=== PATIENT | male | born 1955 | race Caucasian/White ===

== ENCOUNTER → 2017-05-27 | Outpatient (REF) | payer OTHER | LOC: M LAB REF 12:22 | PROVIDERS: ATTEND Nurse Practitioner Family | DX: M10.9 Gout, unspecified (principal) ==

== ENCOUNTER → 2017-12-08 | Outpatient (REF) | payer OTHER ==
[2017-12-10 12:05] LABS: HEPATITIS B SURFACE ANTIGEN NEGATIVE (NEGATIVE)
[2017-12-10 12:15] LABS: HEPATITIS B SURFACE ANTIBODY NEGATIVE (POSITIVE)
[2017-12-10 12:31] LABS: HEPATITIS A ANTIBODY IGM NEGATIVE (NEGATIVE)
[2017-12-13 14:11] LABS: HEPATITIS C QUANTITATION HCV Not Detected IU/mL (.)
== END ==
LOC: M LAB REF 16:36
DX: K50.10 Crohn's disease of large intestine without complications (principal); Z94.5 Skin transplant status

== ENCOUNTER → 2018-04-05 | Outpatient (REF) | payer MEDICARE, OTHER ==
[2018-04-06 14:52] LABS: C REACTIVE PROTEIN QUANTITATIV 0.32 MG/DL (0.00-0.30)
== END ==
LOC: M LAB REF 04-06 14:17
DX: I88.9 Nonspecific lymphadenitis, unspecified (principal)
CPT/HCPCS: 86140

== ENCOUNTER → 2018-12-12 | Outpatient (REF) | payer MEDICARE, OTHER ==
[2018-12-12 18:17] LABS: INR 1.07
[2018-12-12 18:18] LABS: PARTIAL THROMBOPLASTIN TIME 33.4 SECONDS (25.4-37.6)
[2018-12-12 18:54] LABS: FERRITIN 612 NG/ML (26-388); GAMMA GLUTAMYLTRANSPEPTIDASE 234 U/L (15-85); IRON (FE) 130 UG/DL (65-175); TOTAL IRON BINDING CAPACITY 289 UG/DL (250-450)
[2018-12-14 11:48] LABS: HEPATITIS B CORE ANTIBODY IGM NEGATIVE (NEGATIVE)
[2018-12-14 11:50] LABS: HEPATITIS A ANTIBODY IGM NEGATIVE (NEGATIVE)
[2018-12-14 13:22] LABS: HEPATITIS B SURFACE ANTIGEN NEGATIVE (NEGATIVE)
[2018-12-14 14:34] LABS: CERULOPLASMIN 19.1 mg/dL (16.0-31.0)
[2018-12-15 00:06] LABS: ALPHA 1 ANTITRYPSIN 127 mg/dL (90-200); ANTI-MITOCHONDRIAL ANTIBODY <20.0 Units (0.0-20.0); ANTI-SMOOTH MUSCLE ANTIBODY 5 Units (0-19); ANTINUCLEAR ANTIBODIES DIRECT Negative (Negative); ENDOMYSIAL ABY IgA Negative (Negative); TISSUE TRANSGLUTAMINASE IgA <2 U/mL (0-3); TISSUE TRANSGLUTAMINASE IgG <2 U/mL (0-5); UNITSIGA FOR GLIADIN IGA 5 units (0-19); UNITSIGG FOR GLIADIN IGG 1 units (0-19)
== END ==
LOC: M LAB REF 16:30
PROVIDERS: ATTEND Internal Medicine
DX: R94.5 Abnormal results of liver function studies (principal); D50.9 Iron deficiency anemia, unspecified

== ENCOUNTER → 2018-12-27 | Outpatient (REF) | payer MEDICARE, OTHER | LOC: M LAB REF 12:29 | PROVIDERS: ATTEND Nurse Practitioner Family | DX: R79.89 Other specified abnormal findings of blood chemistry (principal) ==

== ENCOUNTER → 2019-12-12 | Outpatient (REF) | payer MEDICARE, OTHER ==
[2019-12-12 13:16] LABS: C REACTIVE PROTEIN QUANTITATIV < 0.30 MG/DL (0.00-0.30); FERRITIN 758 NG/ML (26-388); IRON (FE) 129 UG/DL (65-175); PERCENT SATURATION 43.3 % (19.7-50.0); RHEUMATOID FACTOR QUANT < 10.0 IU/ML (<15.0); TOTAL IRON BINDING CAPACITY 298 UG/DL (250-450)
[2019-12-12 13:20] LABS: VITAMIN B12 LEVEL 394 PG/ML (247-911)
[2019-12-13 14:07] LABS: ANTINUCLEAR ANTIBODIES DIRECT Negative (Negative)
== END ==
LOC: M LAB REF 12:48
PROVIDERS: ATTEND Nurse Practitioner Family
DX: K50.10 Crohn's disease of large intestine without complications (principal); R94.5 Abnormal results of liver function studies; M25.50 Pain in unspecified joint

== ENCOUNTER → 2020-05-22 | Outpatient (REF) | payer MEDICARE, OTHER ==
[~2020-05-22] MED LIST: CALTTAB6 PO; D 10TAB2 PO; DOK1CAP7; DULC5TAB PO; HYDR12.55 PO; HYDR25TAB PO; LIAL1.2T PO; PEG1POW; SIMV10TA21 PO; SIMV20TA22 PO; ZYLO300T6 PO
[2020-05-22 18:05] LABS: C REACTIVE PROTEIN QUANTITATIV 1.09 MG/DL (0.00-0.30); PERCENT SATURATION 22.9 % (19.7-50.0)
[2020-05-24 18:07] LABS: ENDOMYSIAL ABY IgA Negative (Negative); TISSUE TRANSGLUTAMINASE IgA <2 U/mL (0-3)
== END ==
LOC: M LAB REF 17:16
PROVIDERS: ATTEND Registered Nurse
DX: R10.13 Epigastric pain (principal); K50.10 Crohn's disease of large intestine without complications

== ENCOUNTER 2020-05-24 12:43 | Emergency (ER) | payer MEDICARE, OTHER ==
[~2020-05-24] VITALS: Ht 167.6 cm; Wt 85.9 kg
[~2020-05-24 12:43] MED LIST changes: -DOK1CAP7; -DULC5TAB PO; -HYDR25TAB PO; -PEG1POW; -SIMV20TA22 PO
[2020-05-24] MEDS ORDERED: SIMV20TA22 PO (12:55)
[2020-05-24 14:11] LABS: BASO % 0.5 % (0.0-1.0); EOS # 0.1 10^3/uL (0.0-0.5); EOS % 1.3 % (0.0-3.0); HEMATOCRIT 49.6 % (42.0-52.0); HEMOGLOBIN 16.9 g/dl (13.5-17.5); LYMPH # 1.5 10^3/uL (1.5-5.0); MEAN CORPUSCULAR HEMOGLOBIN 32.3 pg (27.0-33.0); MEAN CORPUSCULAR HGB CONC 34.1 g/dl (32.0-36.5); MEAN CORPUSCULAR VOLUME 94.7 fl (80.0-96.0); MONO # 0.6 10^3/uL (0.0-0.8); MONO % 8.1 % (0.0-5.0); NEUTROPHILS # 5.5 10^3/uL (1.5-8.5); NEUTROPHILS % 70.8 % (36.0-66.0); PLATELET COUNT, AUTOMATED 172 10^3/uL (150-450); RED BLOOD COUNT 5.24 10^6/uL (4.30-6.10); WHITE BLOOD COUNT 7.7 10^3/uL (4.0-10.0)
[2020-05-24 14:18] LABS: INR 0.98; PROTHROMBIN TIME 13.2 SECONDS (12.5-14.3)
[2020-05-24 14:19] LABS: PARTIAL THROMBOPLASTIN TIME 31.3 SECONDS (24.2-38.5)
[2020-05-24 14:44] LABS: ALBUMIN 3.5 GM/DL (3.2-5.2); ALT/SGPT 277 U/L (12-78); BILIRUBIN,DIRECT 5.4 MG/DL (0.0-0.2); BILIRUBIN,TOTAL 6.8 MG/DL (0.2-1.0); BLOOD UREA NITROGEN 17 MG/DL (7-18); CARBON DIOXIDE LEVEL 29 MEQ/L (21-32); CHLORIDE LEVEL 101 MEQ/L (98-107); CREATININE FOR GFR 1.22 MG/DL (0.70-1.30); GLOMERULAR FILTRATION RATE > 60.0 (>49); GLUCOSE, FASTING 95 MG/DL (70-100); LIPASE 121 U/L (73-393); POTASSIUM SERUM 3.6 MEQ/L (3.5-5.1); SODIUM LEVEL 138 MEQ/L (136-145); TOTAL PROTEIN 7.5 GM/DL (6.4-8.2)
[2020-05-24] MEDS ORDERED: ISOVUE-370 76% 100ML VIAL As Ordered ONE (15:19)
--- NOTE | 2020-05-24 16:12 | REPVR ---
PROCEDURE INFORMATION: Exam: US Abdomen, Limited; Right Upper Quadrant Exam date and time: 05/24/2020 3:50 PM Age: 65 years old Clinical indication: Abdominal pain TECHNIQUE: Imaging protocol: US abdomen. Real time ultrasound with image documentation. Limited exam focused on the right upper quadrant. COMPARISON: CT ABD/PEL W/IV CONTRAST ONLY 05/24/2020 3:26 PM FINDINGS: Liver: Mildly hyperechoic consistent with hepatic steatosis. No masses. Gallbladder: Status post cholecystectomy. Common bile duct: Normal. No stones. No dilation. Maximal diameter is 7.6 mm. Distal diameter was greater on CT. Pancreas: Cannot be visualized due to overlying bowel gas. Mass identified on recent CT is not visualized. Right kidney: Normal. No mass. No hydronephrosis. IMPRESSION: Fatty liver. Electronically signed by: Reymundo Kirby On 05/24/2020 16:11:45 PM
--- NOTE | 2020-05-24 16:12 | REPVR ---
PROCEDURE INFORMATION: Exam: CT Abdomen And Pelvis With Contrast Exam date and time: 05/24/2020 3:14 PM Age: 65 years old Clinical indication: Abdominal pain; Generalized TECHNIQUE: Imaging protocol: Computed tomography of the abdomen and pelvis with intravenous contrast. Radiation optimization: All CT scans at this facility use at least one of these dose optimization techniques: automated exposure control; mA and/or kV adjustment per patient size (includes targeted exams where dose is matched to clinical indication); or iterative reconstruction. Contrast material: ISOVUE 370; Contrast volume: 100 ml; Contrast route: INTRAVENOUS (IV); COMPARISON: No relevant prior studies available. FINDINGS: Lungs: There are calcified granulomata at the lung bases. Liver: There is diffuse hepatic steatosis. There is no focal hepatic lesion. There is no focal lesion. Gallbladder and bile ducts: Status post cholecystectomy. The intrahepatic bile ducts and common bile ducts are mildly dilated. The common bile duct measures 11 mm in maximal diameter. Pancreas: There is a large hypodense mass within the head of the pancreas measuring 3.3 by 3.0 by 3.3 cm. It is seen within the inferior head of the pancreas involving the uncinate process. Spleen: The spleen is mildly enlarged, 14 cm. There are calcified splenic granulomata. Adrenals: The adrenals are normal. Kidneys and ureters: The kidneys are normal.No hydronephrosis. Stomach and bowel: Unremarkable. No obstruction. No mucosal thickening. Appendix: No evidence of appendicitis. Intraperitoneal space: Unremarkable. No free air. No significant fluid collection. Vasculature: The mass abuts but does not encase the superior mesenteric artery and vein. Lymph nodes: There are mildly enlarged lymph nodes in the gastrohepatic ligament measuring up to 9 mm in short axis. There are mildly enlarged lymph nodes in the celiac region measuring up to 12 mm in short axis. Urinary bladder: The bladder is normal with no evidence of calculi. Reproductive: The prostate is enlarged measuring up to 5.7 cm in diameter. Bones/joints: Unremarkable. No acute fracture. Soft tissues: Unremarkable. IMPRESSION: 1. 3.3 x 3.0 x 3.3 cm hypoenhancing mass within the head of the pancreas highly suspicious for pancreatic adenocarcinoma. 2. There are several mildly enlarged abdominal lymph nodes suspicious for metastatic adenopathy. 3. Status post cholecystectomy. There are mildly dilated intrahepatic and extrahepatic bile ducts which appears secondary to distal obstruction by the pancreatic mass. Electronically signed by: Reymundo Kirby On 05/24/2020 16:12:14 PM
[2020-05-24] MEDS ORDERED: HYDR25TAB PO (18:47)
[2020-05-24 22:15] VITALS: BP 150/89
== END 2020-05-24 22:37 | disposition short-term general hospital (02) ==
LOC: M ED 12:43
DX: K86.9 Disease of pancreas, unspecified (principal); K83.1 Obstruction of bile duct; R93.5 Abnormal findings on diagnostic imaging of other abdominal regions, including retroperitoneum; K76.0 Fatty (change of) liver, not elsewhere classified; I10 Essential (primary) hypertension; M10.9 Gout, unspecified; K50.919 Crohn's disease, unspecified, with unspecified complications; Z79.899 Other long term (current) drug therapy
CPT/HCPCS: 74177; 76705; 80048; 80076; 82140; 82977; 83605; 83690; 85025; 85610; 85730; 99285; Q9967

== ENCOUNTER 2020-06-12 07:07 | Emergency (ER) | payer MEDICARE, OTHER ==
[~2020-06-12] VITALS: Ht 167.6 cm; Wt 79.8 kg
[~2020-06-12 07:07] MED LIST changes: +HYDR25TAB PO; +SIMV20TA22 PO
[2020-06-12] MEDS ORDERED: PEG1POW (07:17)
[2020-06-12] MEDS ORDERED: DULC5TAB PO (07:17)
[2020-06-12] MEDS ORDERED: DOK1CAP7 (07:17)
[2020-06-12] MEDS ORDERED: ONDANSETRON 4MG/2ML VIAL IV ONE (07:45)
[2020-06-12 07:50] LABS: BASO # 0.1 10^3/uL (0.0-0.2); BASO % 0.3 % (0.0-1.0); EOS # 0.2 10^3/uL (0.0-0.5); EOS % 1.3 % (0.0-3.0); HEMATOCRIT 39.6 % (42.0-52.0); HEMOGLOBIN 13.2 g/dl (13.5-17.5); LYMPH # 1.5 10^3/uL (1.5-5.0); LYMPH % 8.5 % (24.0-44.0); MEAN CORPUSCULAR HEMOGLOBIN 30.6 pg (27.0-33.0); MEAN CORPUSCULAR HGB CONC 33.3 g/dl (32.0-36.5); MEAN CORPUSCULAR VOLUME 91.7 fl (80.0-96.0); MONO # 1.6 10^3/uL (0.0-0.8); NEUTROPHILS # 14.1 10^3/uL (1.5-8.5); NEUTROPHILS % 80.1 % (36.0-66.0); PLATELET COUNT, AUTOMATED 389 10^3/uL (150-450); RED BLOOD COUNT 4.32 10^6/uL (4.30-6.10); WHITE BLOOD COUNT 17.6 10^3/uL (4.0-10.0)
[2020-06-12] MEDS: NS 1,000 ML IV SCH ×2 (07:53→18:24)
--- NOTE | 2020-06-12 08:13 | REP ---
INDICATION: Abdominal Pain. COMPARISON: Comparison CT study May 24, 2020.. TECHNIQUE: Three views. FINDINGS: Upright chest radiograph is unremarkable. There is no evidence of infiltrate or free subdiaphragmatic air. Heart size is normal. Pulmonary vasculature is not increased. Pleural angles are sharp. There are granulomatous calcifications in the left base and left hilus. The thoracic aorta is somewhat tortuous. There is a unremarkable bowel gas pattern on supine and erect views of the abdomen. No evidence of obstruction significant air-fluid level or free air. A right upper quadrant common bile duct stent is seen in place. There are surgical clips post cholecystectomy also noted in the right upper quadrant. IMPRESSION: No evidence of obstruction or free air. Common bile duct stent and clips noted in the right upper quadrant. Bowel gas pattern unremarkable. No active disease in the chest.. <Electronically signed by Sammy Lay > 06/12/20 [id number]
[2020-06-12 08:18] LABS: ALBUMIN 2.3 GM/DL (3.2-5.2); ALT/SGPT 183 U/L (12-78); AMYLASE 278 U/L (25-115); BILIRUBIN,DIRECT 1.2 MG/DL (0.0-0.2); BLOOD UREA NITROGEN 16 MG/DL (7-18); CALCIUM LEVEL 8.7 MG/DL (8.8-10.2); CARBON DIOXIDE LEVEL 29 MEQ/L (21-32); CHLORIDE LEVEL 96 MEQ/L (98-107); CREATININE FOR GFR 1.14 MG/DL (0.70-1.30); GLOMERULAR FILTRATION RATE > 60.0 (>49); GLUCOSE, FASTING 124 MG/DL (70-100); LIPASE 2106 U/L (73-393); POTASSIUM SERUM 4.6 MEQ/L (3.5-5.1); SODIUM LEVEL 132 MEQ/L (136-145); TOTAL PROTEIN 7.4 GM/DL (6.4-8.2)
[2020-06-12] MEDS: GASTROGRAFIN SOLUTION 30ML PO SCH ×2 (08:47→09:38)
[2020-06-12 08:50] LABS: INR 1.21; PROTHROMBIN TIME 15.6 SECONDS (12.5-14.3)
[2020-06-12] MEDS ORDERED: ISOVUE-370 76% 100ML VIAL As Ordered ONE (10:00)
--- NOTE | 2020-06-12 10:57 | REP ---
INDICATION: RLQ pain, Hx Crohn's, Panc. Ca and ?cecal thickening/mass COMPARISON: 05/24/2020. TECHNIQUE: CT Scan of the abdomen and pelvis was performed with intravenous administration of 100 cc of Isovue 370, and oral contrast. FINDINGS: Lung bases: There are calcified granulomas in the lung bases.. Liver: Mild diffuse intrahepatic biliary dilatation. No definite mass is seen. Gallbladder: There has been a prior cholecystectomy. There is a stent in the common bile duct which is dilated up to approximately 10-11 mm in maximum diameter.. Spleen: There are calcified granulomas. Adrenals: Normal. Pancreas: A large mass is again seen in the pancreatic head. This may have mildly increased in size compared to the prior CT. Current maximum diameter is 5.4 cm. There is new dilatation of the pancreatic duct up to 5 mm. There is also new diffuse peripancreatic inflammation consistent with pancreatitis. Kidneys: Probable tiny cyst seen in the mid right kidney. No hydronephrosis. Small and large bowel: There is thickening of the proximal jejunum, secondary to adjacent pancreatitis. Free fluid: None. Abdominal aorta: No aneurysm or dissection. Adenopathy: There is extensive portal adenopathy, with multiple enlarged lymph nodes seen. The largest is just above the pancreatic head and measures 2.8 x 2.0 cm. Multiple subcentimeter periaortic lymph nodes are seen with several mildly enlarged lymph nodes slightly greater than 1 cm in short axis dimension. Appendix: Not inflamed. Osseous structures: Unremarkable. Pelvis: Prostate is enlarged and impresses upon the base of the bladder. IMPRESSION: A large mass is again seen in the pancreatic head. This may have mildly increased in size compared to the prior CT. Current maximum diameter is 5.4 cm. There is new dilatation of the pancreatic duct up to 5 mm. There is also new diffuse peripancreatic inflammation consistent with pancreatitis. Mild diffuse intrahepatic biliary dilatation. There is thickening of the proximal jejunum, secondary to adjacent pancreatitis. There is extensive portal adenopathy, with multiple enlarged lymph nodes seen. The largest is just above the pancreatic head and measures 2.8 x 2.0 cm. Multiple subcentimeter periaortic lymph nodes are seen with several mildly enlarged lymph nodes slightly greater than 1 cm in short axis dimension. <Electronically signed by Rowdy Leahy > 06/12/20 [id number]
[2020-06-12 14:52] LABS: ALBUMIN 2.1 GM/DL (3.2-5.2); BILIRUBIN,DIRECT 1.2 MG/DL (0.0-0.2); BILIRUBIN,TOTAL 1.6 MG/DL (0.2-1.0); TOTAL PROTEIN 6.6 GM/DL (6.4-8.2)
[2020-06-12 20:00] VITALS: BP 133/92
[2020-07-03] MEDS ORDERED: CREO3000 PO (10:50)
[2020-07-03] MEDS ORDERED: LOPE-39 PO (10:50)
[2020-07-03] MEDS ORDERED: REME15TA2 PO (10:50)
== END 2020-06-12 20:15 | disposition short-term general hospital (02) ==
LOC: M ED 07:07
DX: K85.90 Acute pancreatitis without necrosis or infection, unspecified (principal); C25.9 Malignant neoplasm of pancreas, unspecified; R59.0 Localized enlarged lymph nodes; Z96.89 Presence of other specified functional implants; I10 Essential (primary) hypertension; M10.9 Gout, unspecified; E78.5 Hyperlipidemia, unspecified; K50.919 Crohn's disease, unspecified, with unspecified complications; K74.60 Unspecified cirrhosis of liver; Z79.899 Other long term (current) drug therapy
CPT/HCPCS: 36415; 74021; 74177; 80048; 80076; 82150; 82977; 83605; 83690; 85025; 85610; 93041; 96361; 96374; 99285; J2405; Q9963; Q9967; U0002

== ENCOUNTER → 2020-08-30 | Outpatient (CLI) | payer MEDICARE, OTHER ==
[~2020-08-30] MED LIST changes: +CREO3000 PO; +DOK1CAP7; +DULC5TAB PO; +GASTROGRAFIN SOLUTION 30ML (Q9963) As Ordered ONE; +HYDR-3490 PO; -HYDR25TAB PO; +ISOVUE-370 76% 100ML VIAL As Ordered ONE; +LOPE-39 PO; +METO10TA2; +ONDA8TAB10; +PEG1POW; +POTA1TAB23; +REME15TA2 PO; +SENN-80
--- NOTE | 2020-09-04 17:27 | REP ---
INDICATION: PANCREATIC CA COMPARISON: None TECHNIQUE: Axial contrast enhanced images from the thoracic inlet to the upper abdomen with coronal and sagittal reformations using 100 ml Isovue 370 intravenous contrast material followed by CT of the abdomen and pelvis.. This CT examination was performed using the following dose reduction techniques: Automated exposure control, adjustment of mA and/or kv according to the patient's size, and use of iterative reconstruction technique. FINDINGS: The bilateral lung olivares are relatively well aerated and demonstrate few scattered calcified nodules along with few nonspecific right hilar lymph nodes suggesting sequelae of prior granulomatous disease. No acute consolidation, significant nodule or mass lesion identified. No pleural effusion. No pneumothorax. Tracheobronchial tree is patent. Further evaluation of the mediastinum demonstrates atherosclerotic changes to the coronary arteries and thoracic aorta with ascending aorta measuring 4.1 cm diameter and no evidence for dissection. No cardiomegaly or pericardial effusion. Surrounding musculoskeletal structures are intact and without acute osseous abnormality. [id number] identified with tip in the SVC. IMPRESSION: 1. Evidence for prior granulomatous disease and early aneurysmal dilatation to the ascending thoracic aorta measuring 4.1 cm maximal diameter. 2. No acute mediastinal or pleuroparenchymal process otherwise appreciated. No evidence for metastatic disease. <Electronically signed by Noe Jimenez > 09/04/20 [id number]
--- NOTE | 2020-09-04 17:43 | REP ---
INDICATION: PANCREATIC CA. COMPARISON: 06/12/2020, 11/17/2013 TECHNIQUE: Axial contrast-enhanced images from the lung bases to the pubic symphysis using 100 cc Isovue 370 intravenous contrast material. Delayed images of the abdomen along with coronal and sagittal reformations obtained.. This CT examination was performed using the following dose reduction techniques: Automated exposure control, adjustment of mA and/or kv according to the patient's size, and the use of iterative reconstruction technique. FINDINGS: There is a large heterogeneous and possibly centrally necrotic pancreatic mass involving the head/uncinate and proximal body of the pancreas currently measuring greater than 6.8 x 6.8 x 5.5 cm along with dilated pancreatic duct and relatively newly formed presumed pseudocyst involving the tail of the pancreas measuring approximately 5.5 x 6.8 cm in diameter and 12 cm in craniocaudal length. Most recent prior examination demonstrated peripancreatic inflammatory changes suggesting elements of pancreatitis which have subsequently resolved. Portal and peripancreatic adenopathy is again noted with lymph nodes just above the level of the pancreas currently measuring 2.1 cm maximal diameter which appears mildly improved from prior examination. The current examination demonstrates very small rim enhancing hepatic lesions highly suspicious for hepatic metastases. A stent is identified extending from the main hepatic duct through the common bile duct and the pancreatic head mass into the adjacent duodenum. Chronic splenic calcifications suggest prior granulomatous disease. Patient is noted to be status post cholecystectomy. Bilateral adrenal glands and kidneys appear relatively normal. The enteric system is without obstruction or acute inflammatory process moderate fecal stasis noted throughout the colon along with sigmoid diverticulosis. No acute diverticulitis. Pelvis demonstrates prostatomegaly with mass effect on the base of the bladder. No ascites. No free air. No significant retroperitoneal adenopathy although few periaortic lymph nodes are identified measuring up to 14 mm which have slightly decreased in size. Atherosclerotic changes to the aorta and vasculature without aneurysm or dissection. Musculoskeletal structures demonstrate age-related changes without focal osseous abnormality. IMPRESSION: 1. While the previous changes related to acute pancreatitis have improved, there is a subsequent large pancreatic pseudocyst at the pancreatic tail as described above. 2. Heterogeneous enhancing and possibly partially necrotic pancreatic head mass has increased in size from prior examination. Adjacent peripancreatic and portal adenopathy appears minimally improved which may be secondary to the resolving pancreatitis. Biliary stent is in satisfactory position. Pancreatic duct again appears dilated. 3. New small scattered hepatic hypodensities with rim enhancement highly suspicious for metastatic disease. 4. Prostatomegaly. 5. Diverticulosis. <Electronically signed by Noe Jimenez > 09/04/20 [id number]
== END ==
LOC: M RAD 07:27
PROVIDERS: ATTEND Internal Medicine
DX: C25.0 Malignant neoplasm of head of pancreas (principal); I71.4 Abdominal aortic aneurysm, without rupture; D37.8 Neoplasm of uncertain behavior of other specified digestive organs; N40.0 Benign prostatic hyperplasia without lower urinary tract symptoms; K85.90 Acute pancreatitis without necrosis or infection, unspecified
CPT/HCPCS: 71260; 74177; Q9963; Q9967

== ENCOUNTER 2020-09-24 12:27 | Emergency (ER) | payer MEDICARE, OTHER ==
[~2020-09-24] VITALS: Ht 168.9 cm; Wt 61.4 kg
[~2020-09-24 12:27] MED LIST changes: -GASTROGRAFIN SOLUTION 30ML (Q9963) As Ordered ONE; -ISOVUE-370 76% 100ML VIAL As Ordered ONE; -METO10TA2; -ONDA8TAB10; -POTA1TAB23; -SENN-80
[2020-09-24] MEDS ORDERED: METO10TA2 (12:38)
[2020-09-24] MEDS ORDERED: SENN-80 (12:38)
[2020-09-24] MEDS ORDERED: ONDA8TAB10 (12:38)
[2020-09-24] MEDS ORDERED: POTA1TAB23 (12:38)
[2020-09-24] MEDS ORDERED: NS 1,000 ML IV ONE ×4 (13:30→18:00)
[2020-09-24 13:41] LABS: HEMATOCRIT 35.5 % (42.0-52.0); MEAN CORPUSCULAR HEMOGLOBIN 27.7 pg (27.0-33.0); MEAN CORPUSCULAR VOLUME 89.4 fl (80.0-96.0); PLATELET COUNT, AUTOMATED 109 10^3/uL (150-450); RED BLOOD COUNT 3.97 10^6/uL (4.30-6.10); WHITE BLOOD COUNT 6.3 10^3/uL (4.0-10.0)
[2020-09-24 14:01] LABS: BLOOD UREA NITROGEN 14 MG/DL (7-18); CALCIUM LEVEL 8.5 MG/DL (8.8-10.2); CARBON DIOXIDE LEVEL 22 MEQ/L (21-32); CHLORIDE LEVEL 111 MEQ/L (98-107); CREATININE FOR GFR 1.11 MG/DL (0.70-1.30); GLOMERULAR FILTRATION RATE > 60.0 (>49); GLUCOSE, FASTING 148 MG/DL (70-100); POTASSIUM SERUM 3.7 MEQ/L (3.5-5.1); SODIUM LEVEL 147 MEQ/L (136-145)
[2020-09-24 14:05] LABS: LYMPHOCYTES 13 % (16-44); MONOCYTES 4 % (0-5); NEUTROPHILS 82 % (28-66)
[2020-09-24 14:07] LABS: PLATELET ESTIMATE NORMAL (NORMAL)
[2020-09-24 20:28] VITALS: BP 103/65
== END 2020-09-24 20:30 | disposition home or self-care (01) ==
LOC: M ED 12:27
DX: E86.0 Dehydration (principal); T45.1X5A Adverse effect of antineoplastic and immunosuppressive drugs, initial encounter; C25.9 Malignant neoplasm of pancreas, unspecified; Z79.899 Other long term (current) drug therapy

== ENCOUNTER → 2020-09-30 | Outpatient (REF) | payer MEDICARE, OTHER ==
[~2020-09-30] MED LIST changes: +METO10TA2; +ONDA8TAB10; +POTA1TAB23; +SENN-80
[2020-09-30 17:54] LABS: INR 1.17; PROTHROMBIN TIME 15.2 SECONDS (12.5-14.3)
[2020-09-30 17:55] LABS: PARTIAL THROMBOPLASTIN TIME 42.8 SECONDS (24.2-38.5)
== END ==
LOC: M LAB REF 16:25
PROVIDERS: ATTEND Internal Medicine
DX: C25.0 Malignant neoplasm of head of pancreas (principal)

== ENCOUNTER → 2020-10-03 | Outpatient (CLI) | payer MEDICARE, OTHER | LOC: M LABSMTC 09:55 | PROVIDERS: ATTEND Internal Medicine Gastroenterology | DX: Z20.822 Contact with and (suspected) exposure to COVID-19 (principal) ==

== ENCOUNTER → 2020-10-11 | Outpatient (REF) | payer MEDICARE, OTHER ==
[~2020-10-11] MED LIST changes: -PEG1POW; +POLY17PO18
== END ==
LOC: M LAB REF 15:54
PROVIDERS: ATTEND Physician Assistant
DX: R35.0 Frequency of micturition (principal)